=== PATIENT | male | born 2000 | race Caucasian/White ===

== ENCOUNTER 2019-11-25 20:51 | Emergency (ER) | payer BC, OTHER ==
[2019-11-25 21:09] VITALS: BP 121/64; PULSE 82; RESP 18; TEMP 99
--- NOTE | 2019-11-25 21:24 | XR ---
EXAMINATION TYPE: XR wrist complete RT DATE OF EXAM: 11/25/2019 COMPARISON: NONE HISTORY: Wrist pain TECHNIQUE: 4 views FINDINGS: Carpal bones are intact. Joint spaces appear normal. I see no fracture nor dislocation. The re are no erosions. IMPRESSION: Normal exam.
--- NOTE | 2019-11-25 21:27 | ED ---
General Adult HPI - General Chief complaint: Extremity Injury, Upper Stated complaint: R Wrist Injury Time Seen by Provider: 11/25/19 21:04 Source: patient, RN notes reviewed Mode of arrival: ambulatory Limitations: no limitations - History of Present Illness Initial comments: 19-year-old male presents to the emergency department for right wrist pain. Patient states he was at work lifting heavy objects when he twisted one over in his right hand and felt a pain in his distal right forearm. Patient states that extending the wrist feels fine but flexing it causes the wrist pain. Denies any pain in the right hand. Denies any numbness or tingling in the right hand. Denies any weakness in the right hand. States he thinks he just pulled a muscle in his wrist but his work requires him to be evaluated.Patient has no other complaints at this time including shortness of breath, chest pain, abdominal pain, nausea or vomiting, headache, or visual changes. - Related Data Home Medications Medication Instructions Recorded Confirmed Mupirocin [Mupirocin 2%] 1 applic TOPICAL DAILY 08/18/16 08/18/16 Sulfamethoxazole/Trimethoprim 1 tab PO Q12H 08/18/16 08/18/16 [Bactrim DS 800-160 mg] Previous Rx's Medication Instructions Recorded Naproxen [Naprosyn] 500 mg PO Q12HR #20 tab 08/18/16 Allergies Allergy/AdvReac Type Severity Reaction Status Date / Time No Known Allergies Allergy Verified 08/18/16 20:41 Review of Systems ROS Statement: Those systems with pertinent positive or pertinent negative responses have been documented in the HPI. ROS Other: All systems not noted in ROS Statement are negative. Past Medical History Past Medical History: No Reported History History of Any Multi-Drug Resistant Organisms: MRSA Date of last positivie culture/infection: 08/18/16 MDRO Source:: RIGHT KNEE Additional Past Surgical History / Comment(s): heart surgery-infant Past Psychological History: No Psychological Hx Reported Smoking Status: Never smoker Past Alcohol Use History: None Reported Past Drug Use History: None Reported General Exam Limitations: no limitations General appearance: alert, in no apparent distress Head exam: Present: atraumatic, normocephalic, normal inspection Eye exam: Present: normal appearance, PERRL, EOMI. Absent: scleral icterus, conjunctival injection, periorbital swelling ENT exam: Present: normal exam, mucous membranes moist Neck exam: Present: normal inspection. Absent: tenderness, meningismus, lymphadenopathy Respiratory exam: Present: normal lung sounds bilaterally. Absent: respiratory distress, wheezes, rales, rhonchi, stridor Cardiovascular Exam: Present: regular rate, normal rhythm, normal heart sounds. Absent: systolic murmur, diastolic murmur, rubs, gallop, clicks GI/Abdominal exam: Present: normal bowel sounds Extremities exam: Present: full ROM (Range of motion of the right wrist however flexion does elicit pain in the distal aspect of the right forearm. Full range motion of the right elbow in all digits in the right hand), normal capillary refill (Capillary refill less than 2 seconds, radial pulse 2+ in the right upper extremity), other (pt has sensation intact in the right upper extremity and all digits of the right hand). Absent: tenderness (no Significant tenderness. Pain is in the dorsum of the right distal forearm. No tenderness to the scaphoid) Course Vital Signs 11/25/19 21:06 Temperature 99 F Pulse Rate 82 Respiratory 18 Rate Blood Pressure 121/64 O2 Sat by Pulse 98 Oximetry Medical Decision Making - Medical Decision Making XR of the right wrist shows a negative exam. No fracture or dislocation. Carpal bones are intact. Patient was wrapped with an John wrap. At this time I recommend Motrin and Tylenol for pain. This is likely soft tissue injury. No s caphoid tenderness. Recommend he follow up with primary care in 1-2 days and return if he has any worsening symptoms. Disposition Clinical Impression: Wrist pain, right Disposition: HOME SELF-CARE Condition: Good Instructions (If sedation given, give patient instructions): Wrist Injury (ED) Additional Instructions: Please take Motrin and Tylenol for pain. Use John wrap as needed. Follow-up with primary care in 1-2 days. If you have any worsening symptoms return to the emergency department. Is patient prescribed a controlled substance at d/c from ED?: No Referrals: Blair Batres MD [REFERRING] - 1-2 days Time of Disposition: 21:40
== END 2019-11-25 21:49 | disposition home or self-care (01) ==
LOC: EC 20:51
DX: M25.531 Pain in right wrist (principal); Z86.14 Personal history of Methicillin resistant Staphylococcus aureus infection
CPT/HCPCS: 99283